=== PATIENT | female | born 1955 | race Caucasian/White ===

== ENCOUNTER → 2024-02-11 06:30 | Day surgery (SDC) | payer MEDICARE, OTHER, SELFPAY ==
[2024-02-11 07:47] LABS: Glucose - Point of Care 161 mg/dl (70-99)
== END ==
LOC: GI 06:30
PROVIDERS: ATTENDING PHYSICIAN Internal Medicine; FAMILY PHYSICIAN Family Medicine
DX: Z12.11 Encounter for screening for malignant neoplasm of colon (principal); D12.2 Benign neoplasm of ascending colon; D12.3 Benign neoplasm of transverse colon; K57.30 Diverticulosis of large intestine without perforation or abscess without bleeding; K64.9 Unspecified hemorrhoids; Z86.010 Personal history of colon polyps
CPT/HCPCS: 45385; 45380; 88305; 82962

== ENCOUNTER → 2024-07-20 09:14 | Outpatient (REF) | payer MEDICARE, OTHER, SELFPAY | LOC: HWRAD 09:14 | PROVIDERS: ATTENDING PHYSICIAN Internal Medicine; FAMILY PHYSICIAN Family Medicine | DX: N18.31 Chronic kidney disease, stage 3a (principal) | CPT/HCPCS: 76770 ==

== ENCOUNTER → 2024-08-17 08:49 | Outpatient (REF) | payer MEDICARE, OTHER, SELFPAY | LOC: HWRAD 08:49 | PROVIDERS: ATTENDING PHYSICIAN Family Medicine | DX: J45.909 Unspecified asthma, uncomplicated (principal) | CPT/HCPCS: 71046 ==

== ENCOUNTER → 2024-09-22 13:40 | Outpatient (REF) | payer MEDICARE, OTHER, SELFPAY | LOC: RAD 13:40 | PROVIDERS: ATTENDING PHYSICIAN Internal Medicine; FAMILY PHYSICIAN Family Medicine | DX: K38.9 Disease of appendix, unspecified (principal); K74.60 Unspecified cirrhosis of liver | CPT/HCPCS: 74177; Q9967 ==